=== PATIENT | female | born 1990 | race African-American/Black ===

== ENCOUNTER 2017-07-27 21:48 | Inpatient (IN) | payer MEDICAID ==
[~2017-07-27] VITALS: Ht 165.1 cm; Wt 63.5 kg
[2017-07-27] MEDS ORDERED: LORazepam Inj 2mg/ml 1ml IV ONE (22:45)
[2017-07-27 23:08] VITALS: BP 107/69
[2017-07-27 23:15] LABS: EOSINOPHILS % (AUTO) 4.3 % (0.0-3.0); LYMPHOCYTES % (AUTO) 44.2 % (20.0-45.0); MEAN CORPUSCULAR HEMOGLOBIN 31.3 PG (27.0-31.0); MEAN CORPUSCULAR HGB CONC 34.6 G/DL (32.0-36.0); MEAN CORPUSCULAR VOLUME 91 FL (80-99); MEAN PLATELET VOLUME 6.1 FL (6.5-10.1); MONOCYTES % (AUTO) 5.4 % (1.0-10.0); NEUTROPHILS % (AUTO) 44.2 % (45.0-75.0); PLATELET COUNT 287 K/UL (150-450); RED BLOOD COUNT 4.69 M/UL (4.20-5.40); RED CELL DISTRIBUTION WIDTH 10.7 % (11.6-14.8); WHITE BLOOD COUNT 4.8 K/UL (4.8-10.8)
[2017-07-27 23:20] LABS: APPEARANCE,URINE CLEAR; KETONES,URINE NEGATIVE (NEGATIVE); NITRITE,URINE NEGATIVE (NEGATIVE); PH,URINE 5 (4.5-8.0); PROTEIN,URINE 1+ (NEGATIVE); UROBILINOGEN,URINE 1 MG/DL (0.0-1.0)
[2017-07-27 23:29] LABS: TROPONIN I < 0.30 ng/mL (<=0.30)
[2017-07-27 23:30] LABS: ACETAMINOPHEN < 10 ug/mL (10-30); ALANINE AMINOTRANSFERASE 11 U/L (3-33); ALBUMIN/GLOBULIN RATIO 1.3 (1.0-2.7); ALCOHOL < 10 mg/dL; ANION GAP 14 (5-15); ASPARTATE AMINO TRANSFERASE 19 U/L (5-40); CALCIUM 9.3 mg/dL (8.6-10.2); CARBON DIOXIDE 22 mEQ/L (20-30); CHLORIDE 106 mEQ/L (98-107); CREATININE 0.8 mg/dL (0.5-0.9); GLOMERULAR FILTRATION RATE > 60 mL/min (>60); HEMOLYSIS 21; POTASSIUM 3.7 mEQ/L (3.4-4.9); SODIUM 142 mEQ/L (135-145); TOTAL PROTEIN 7.9 g/dL (6.6-8.7)
[2017-07-27 23:34] LABS: LEUKOCYTE ESTERASE ,URINE 2+ (NEGATIVE)
[2017-07-27 23:35] LABS: BACTERIA,URINE FEW /HPF; SQUAMOUS EPITHELIAL CELL,UR MANY /LPF (NONE/OCC); WBC,URINE 15-20 /HPF (0 - 2)
[2017-07-27 23:41] LABS: CKMB < 1.5 ng/mL (< 3.8)
[2017-07-28] VITALS (7 sets, daily range): BP systolic 93–117; BP diastolic 52–78
[2017-07-28] MEDS ORDERED: levETIRAcetam 500 MG in D5W 110 ML IV ONE (00:30)
[2017-07-28] MEDS ORDERED: levETIRAcetam 500mg vial IV ONE (00:42)
[2017-07-28] MEDS ORDERED: Miralax 17gm pkt ORAL PRN (01:00)
[2017-07-28] MEDS ORDERED: Mylanta II UD 30ml ORAL PRN ×2 (01:00→15:30)
[2017-07-28] MEDS ORDERED: Zolpidem 5mg tab ORAL PRN ×2 (01:00→20:45)
[2017-07-28] MEDS ORDERED: NKM (01:00)
[2017-07-28] MEDS ORDERED: LORazepam Inj 2mg/ml 1ml IV PRN ×2 (01:00→15:30)
[2017-07-28] MEDS: Morphine Sulfate 2mg/ml Inj IVP PRN ×3 (02:25→13:30)
--- NOTE | 2017-07-28 02:41 | Emergency Room Report ---
History of Present Illness General Chief Complaint: General Complaint Source: Patient Present Illness HPI 19-year-old female presents to ED for evaluation. Patient presents with shaking of her right arm. Started 3 days ago. Patient states approximately one week ago she had a seizure but did not come to the hospital. Patient had a seizure one week prior to that as well. Patient did not seek medical attention for either seizure. States that her last 3 days she's been having shaking of her right arm. Denies any prior history of seizure. Denies any head injury. Denies any headache, blurry vision. Denies drug use. No other aggravating relieving factors. Denies any other associated symptoms Allergies: Coded Allergies: No Known Allergies (Unverified , 07/27/17) Patient History Past Medical History: asthma Past Surgical History: none Pertinent Family History: none Social History: Denies: smoking, alcohol use, drug use Last Menstrual Period: May 2017 Now: No Immunizations: UTD Reviewed Nursing Documentation: PMH: Agreed, PSxH: Agreed Nursing Documentation-PMH Hx Asthma: Yes Hx Gastrointestinal Problems: Yes - ulcer Review of Systems All Other Systems: negative except mentioned in HPI Physical Exam Vital Signs Date Time Temp Pulse Resp B/P (MAP) Pulse Ox O2 Delivery O2 Flow Rate FiO2 07/27/17 22:27 98.1 115 16 159/77 96 Room Air Sp02 EP Interpretation: reviewed, normal General Appearance: no apparent distress, alert, GCS 15, non-toxic Head: normocephalic, atraumatic Eyes: bilateral eye normal inspection, bilateral eye PERRL ENT: hearing grossly normal, normal pharynx, no angioedema, normal voice Neck: full range of motion, supple/symm/no masses Respiratory: chest non-tender, lungs clear, normal breath sounds, speaking full sentences Cardiovascular #1: regular rate, rhythm, no edema Cardiovascular #2: 2+ carotid (R), 2+ carotid (L), 2+ radial (R), 2+ radial (L) , 2+ dorsalis pedis (R), 2+ dorsalis pedis (L) Gastrointestinal: normal bowel sounds, non tender, soft, non-distended, no guarding, no rebound Rectal: deferred Genitourinary: normal inspection, no CVA tenderness Musculoskeletal: back normal, gait/station normal, normal range of motion, non- tender Neurologic: alert, oriented x3, responsive, motor strength/tone normal, sensory intact, speech normal, other - shaking of R arm Psychiatric: judgement/insight normal, memory normal, mood/affect normal, no suicidal/homicidal ideation Reflexes: 3+ bicep (R), 3+ bicep (L), 3+ tricep (R), 3+ tricep (L), 3+ knee (R) , 3+ knee (L) Skin: normal color, no rash, warm/dry, well hydrated Lymphatic: no adenopathy Medical Decision Making Diagnostic Impression: Primary Impression: New onset seizure Additional Impression: Partial seizure, motor ER Course Hospital Course 27-year-old F presents to ED with shaking of R arm. s/p seizure 1 week ago Differential diagnosis includes- breakthrough seizure, alcohol abuse, CVA/TIA Clinical course Patient placed on stretcher. Initial history and physical I ordered labs, IV fluids, CT brain, ativan Labs-electrolytes okay, no leukocytosis noted, hemoglobin/hematocrit stable. Utox negative EKG - NSR, no acute changes interpreted by me CT Brain possible old chronic infarct Partial complex seizure-controlled with Ativan in ED. Given loading dose of Keppra Case discussed with Dr. Giordano and he agreed to accept the patient to his service for further care and support. i. I feel this is a highly complex case requiring extensive working including EKG/Rhythm strip, Xray/CT/US, Blood/urine lab work, repeat exams while in ED, and administration of strong opiates/narcotics for pain control, admission to hospital or close patient follow up. Diagnosis - new onset seizure, partial seizure motor admitted to telemetry in serious condition Labs Test 07/27/17 22:54 White Blood Count 4.8 K/UL (4.8-10.8) Red Blood Count 4.69 M/UL (4.20-5.40) Hemoglobin 14.7 G/DL (12.0-16.0) Hematocrit 42.5 % (37.0-47.0) Mean Corpuscular Volume 91 FL (80-99) Mean Corpuscular Hemoglobin 31.3 PG (27.0-31.0) Mean Corpuscular Hemoglobin Concent 34.6 G/DL (32.0-36.0) Red Cell Distribution Width 10.7 % (11.6-14.8) Platelet Count 287 K/UL (150-450) Mean Platelet Volume 6.1 FL (6.5-10.1) Neutrophils (%) (Auto) 44.2 % (45.0-75.0) Lymphocytes (%) (Auto) 44.2 % (20.0-45.0) Monocytes (%) (Auto) 5.4 % (1.0-10.0) Eosinophils (%) (Auto) 4.3 % (0.0-3.0) Basophils (%) (Auto) 2.0 % (0.0-2.0) Urine Color Yellow Urine Appearance Clear Urine pH 5 (4.5-8.0) Urine Specific [place] 1.025 (1.005-1.035) Urine Protein 1+ (NEGATIVE) Urine Glucose (UA) Negative (NEGATIVE) Urine Ketones Negative (NEGATIVE) Urine Occult Blood 1+ (NEGATIVE) Urine Nitrite Negative (NEGATIVE) Urine Bilirubin Negative (NEGATIVE) Urine Urobilinogen 1 MG/DL (0.0-1.0) Urine Leukocyte Esterase 2+ (NEGATIVE) Urine RBC 2-4 /HPF (0 - 2) Urine WBC 15-20 /HPF (0 - 2) Urine Squamous Epithelial Cells Many /LPF (NONE/OCC) Urine Bacteria Few /HPF (NONE) Urine HCG, Qualitative Negative Sodium Level 142 mEQ/L (135-145) Potassium Level 3.7 mEQ/L (3.4-4.9) Chloride Level 106 mEQ/L (98-107) Carbon Dioxide Level 22 mEQ/L (20-30) Anion Gap 14 (5-15) Blood Urea Nitrogen 5 mg/dL (7-23) Creatinine 0.8 mg/dL (0.5-0.9) Estimat Glomerular Filtration Rate > 60 mL/min (>60) Glucose Level 86 mg/dL (74-106) Calcium Level 9.3 mg/dL (8.6-10.2) Total Bilirubin 0.8 mg/dL (0.0-1.2) Aspartate Amino Transf (AST/SGOT) 19 U/L (5-40) Alanine Aminotransferase (ALT/SGPT) 11 U/L (3-33) Alkaline Phosphatase 51 U/L (35-104) Total Creatine Kinase 153 U/L (26-140) Creatine Kinase MB < 1.5 ng/mL (< 3.8) Creatine Kinase MB Relative Index 0.9 Troponin I < 0.30 ng/mL (<=0.30) Total Protein 7.9 g/dL (6.6-8.7) Albumin 4.6 g/dL (3.5-5.2) Globulin 3.3 g/dL Albumin/Globulin Ratio 1.3 (1.0-2.7) Salicylates Level < 1 mg/dL (10-30) Urine Opiates Screen Negative (NEGATIVE) Acetaminophen Level < 10 ug/mL (10-30) Urine Barbiturates Screen Negative (NEGATIVE) Phencyclidine (PCP) Screen Negative (NEGATIVE) Urine Amphetamines Screen Negative (NEGATIVE) Urine Benzodiazepines Screen Negative (NEGATIVE) Urine Cocaine Screen Negative (NEGATIVE) Urine Marijuana (THC) Screen Negative (NEGATIVE) Serum Alcohol < 10 mg/dL EKG Diagnostic Results Rate: normal Rhythm: NSR ST Segments: no acute changes ASA given to the pt in ED: No Rhythm Strip Diag. 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 Jul 28, 2017 02:41
[2017-07-28] MEDS ORDERED: Heparin 5000 units/ml inj SUBQ SCH (09:00)
--- NOTE | 2017-07-28 09:38 | Diagnostic Imaging Report ---
Indication: Seizure. Headache Technique: Contiguous 5 mm thick transaxial imaging of the head obtained in a Siemens Sensation [address] scanner. Soft tissue and bone windows generated. Total Dose length Product (DLP): [address] Dose Index Volume (CTDIvol): 70.38, 0.15 mGy Comparison: none Findings: The size and configuration of the cortical sulci, basal cisterns, and ventricles are within normal limits for age. There is no mass effect, midline shift, or edema identified. There is no evidence of acute hemorrhage or abnormal extra-axial fluid collections. There is mild encephalomalacia in the lateral part of the left temporal lobe which shows atrophic cortices and prominent sulci. This may possibly be postischemic or due to old trauma. Please correlate clinically. The bones and soft tissues are unremarkable. Impression: No mass effect, edema or acute bleed. Focal encephalomalacia involving lateral left temporal lobe. Old trauma versus old ischemia. Please correlate clinically. The CT scanner at [facility] is accredited by the [employer] and the scans are performed using dose optimization techniques as appropriate to a performed exam including Automatic Exposure control.
--- NOTE | 2017-07-28 13:29 | History and Physical ---
History of Present Illness General Date patient seen: Jul 28, 2017 Reason for Hospitalization: General Complaint Present Illness HPI 19-year-old female presents to ED for evaluation of shaking of her right arm. Started 3 days ago. Patient states approximately one week ago she had a seizure but did not come to the hospital. Patient had a seizure one week prior to that as well. . Denies any prior history of seizure. Denies any head injury. Denies any headache, blurry vision. she is admitted for evaluation of new onset seizures. Allergies: Coded Allergies: No Known Allergies (Unverified , 07/27/17) Medication History Scheduled No Known Medications* (NKM - No Known Medications*), 0 ., (Reported) Patient History Healthcare decision maker Resuscitation status Full Code Advanced Directive on File No Past Medical/Surgical History Past Medical/Surgical History: (1) No pertinent past medical history Review of Systems All Other Systems: negative except mentioned in HPI Physical Exam General Appearance: WD/WN Lines, tubes and drains: peripheral HEENT: normocephalic, atraumatic Neck: non-tender, normal alignment Respiratory/Chest: chest wall non-tender, lungs clear Breasts: no masses Cardiovascular/Chest: normal peripheral pulses, normal rate Abdomen: normal bowel sounds, non tender Genitourinary/Rectal: normal genital exam, normal rectal exam Skin Exam: normal pigmentation 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 Last 24 Hour Vital Signs Date Time Temp Pulse Resp B/P (MAP) Pulse Ox O2 Delivery O2 Flow Rate FiO2 07/28/17 11:26 97.9 80 20 112/72 98 Room Air 07/28/17 08:08 97.7 73 20 93/65 95 Room Air 07/28/17 04:07 73 07/28/17 04:00 98.1 67 18 104/68 98 Room Air 07/28/17 02:00 98.2 69 18 107/66 97 Room Air 07/28/17 01:13 98.1 78 14 117/78 100 Room Air 07/28/17 01:04 82 14 101/63 100 Room Air 07/27/17 23:08 98.1 78 16 107/69 96 Room Air 07/27/17 22:27 98.1 115 16 159/77 96 Room Air Intake and Output 07/28/17 07/29/17 19:00 07:00 Intake Total 480 ml Balance 480 ml Intake Oral 480 ml # Voids 2 Laboratory Tests Test 07/27/17 22:54 White Blood Count 4.8 K/UL (4.8-10.8) Red Blood Count 4.69 M/UL (4.20-5.40) Hemoglobin 14.7 G/DL (12.0-16.0) Hematocrit 42.5 % (37.0-47.0) Mean Corpuscular Volume 91 FL (80-99) Mean Corpuscular Hemoglobin 31.3 PG (27.0-31.0) H Mean Corpuscular Hemoglobin Concent 34.6 G/DL (32.0-36.0) Red Cell Distribution Width 10.7 % (11.6-14.8) L Platelet Count 287 K/UL (150-450) Mean Platelet Volume 6.1 FL (6.5-10.1) L Neutrophils (%) (Auto) 44.2 % (45.0-75.0) L Lymphocytes (%) (Auto) 44.2 % (20.0-45.0) Monocytes (%) (Auto) 5.4 % (1.0-10.0) Eosinophils (%) (Auto) 4.3 % (0.0-3.0) H Basophils (%) (Auto) 2.0 % (0.0-2.0) Urine Color Yellow Urine Appearance Clear Urine pH 5 (4.5-8.0) Urine Specific [place] 1.025 (1.005-1.035) Urine Protein 1+ (NEGATIVE) H Urine Glucose (UA) Negative (NEGATIVE) Urine Ketones Negative (NEGATIVE) Urine Occult Blood 1+ (NEGATIVE) H Urine Nitrite Negative (NEGATIVE) Urine Bilirubin Negative (NEGATIVE) Urine Urobilinogen 1 MG/DL (0.0-1.0) H Urine Leukocyte Esterase 2+ (NEGATIVE) H Urine RBC 2-4 /HPF (0 - 2) H Urine WBC 15-20 /HPF (0 - 2) H Urine Squamous Epithelial Cells Many /LPF (NONE/OCC) H Urine Bacteria Few /HPF (NONE) Urine HCG, Qualitative Negative Sodium Level 142 mEQ/L (135-145) Potassium Level 3.7 mEQ/L (3.4-4.9) Chloride Level 106 mEQ/L (98-107) Carbon Dioxide Level 22 mEQ/L (20-30) Anion Gap 14 (5-15) Blood Urea Nitrogen 5 mg/dL (7-23) L Creatinine 0.8 mg/dL (0.5-0.9) Estimat Glomerular Filtration Rate > 60 mL/min (>60) Glucose Level 86 mg/dL (74-106) Calcium Level 9.3 mg/dL (8.6-10.2) Total Bilirubin 0.8 mg/dL (0.0-1.2) Aspartate Amino Transf (AST/SGOT) 19 U/L (5-40) Alanine Aminotransferase (ALT/SGPT) 11 U/L (3-33) Alkaline Phosphatase 51 U/L (35-104) Total Creatine Kinase 153 U/L (26-140) H Creatine Kinase MB < 1.5 ng/mL (< 3.8) Creatine Kinase MB Relative Index 0.9 Troponin I < 0.30 ng/mL (<=0.30) Total Protein 7.9 g/dL (6.6-8.7) Albumin 4.6 g/dL (3.5-5.2) Globulin 3.3 g/dL Albumin/Globulin Ratio 1.3 (1.0-2.7) Salicylates Level < 1 mg/dL (10-30) L Urine Opiates Screen Negative (NEGATIVE) Acetaminophen Level < 10 ug/mL (10-30) L Urine Barbiturates Screen Negative (NEGATIVE) Phencyclidine (PCP) Screen Negative (NEGATIVE) Urine Amphetamines Screen Negative (NEGATIVE) Urine Benzodiazepines Screen Negative (NEGATIVE) Urine Cocaine Screen Negative (NEGATIVE) Urine Marijuana (THC) Screen Negative (NEGATIVE) Serum Alcohol < 10 mg/dL Height (Feet): 5 Height (Inches): 5.00 Weight (Pounds): 140 Medications Current Medications Medications (Trade) Dose Ordered Sig/Kain Route PRN Reason Start Time Stop Time Status Last Admin Dose Admin Acetaminophen (Tylenol) 650 mg Q4H PRN ORAL fever 07/28/17 01:00 08/27/17 00:59 Al Hydroxide/Mg Hydroxide (Mylanta II) 30 ml Q6H PRN ORAL dyspepsia 07/28/17 01:00 08/27/17 00:59 Dextrose (Dextrose 50%) STAT PRN IV Hypoglycemia 07/28/17 01:00 08/27/17 00:59 Heparin Sodium (Porcine) (Heparin 5000 units/ml) 5,000 units EVERY 12 HOURS SUBQ 07/28/17 09:00 08/27/17 08:59 07/28/17 08:38 Lorazepam (Ativan 2mg/ml 1ml) 2 mg Q1H PRN IV seizures 07/28/17 01:00 08/04/17 00:59 Morphine Sulfate (Morphine Sulfate) 1 mg Q4H PRN IVP For Pain 07/28/17 01:00 08/04/17 00:59 07/28/17 08:40 Ondansetron HCl (Zofran) 4 mg Q6H PRN IVP Nausea & Vomiting 07/28/17 01:00 08/27/17 00:59 Polyethylene Glycol (Miralax) 17 gm HSPRN PRN ORAL Constipation 07/28/17 01:00 08/27/17 00:59 Zolpidem Tartrate (Ambien) 5 mg HSPRN PRN ORAL Insomnia 07/28/17 01:00 08/04/17 00:59 Assessment/Plan Problem List: (1) New onset seizure ICD Codes: R56.9 - Unspecified convulsions SNOMED: 89765561 (2) No pertinent past medical history SNOMED: 165222398 (3) Malingering ICD Codes: Z76.5 - Malingerer [conscious simulation] SNOMED: 45440869 Assessment/Plan neuro evaluation seizure precaution MAMIE HARO Jul 28, 2017 13:29
[2017-07-28] MEDS ORDERED: LORazepam Inj 2mg/ml 1ml IV ONE (16:20)
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
[2017-07-28] MEDS: levETIRAcetam 1,000mg/NS100ml 100 ML IVPB SCH ×2 (16:57→20:15)
[2017-07-28] MEDS ORDERED: Morphine Sulfate 2mg/ml Inj IVP PRN (17:30)
[2017-07-28] MEDS: traMADol 50mg tab ORAL PRN (18:15)
[2017-07-28] MEDS: Heparin 5000 units/ml inj SUBQ SCH (20:21)
[2017-07-28] MEDS ORDERED: levETIRAcetam 1,000mg/NS100ml 100 ML IVPB SCH (21:00)
[2017-07-29] VITALS (7 sets, daily range): BP systolic 93–120; BP diastolic 56–82
[2017-07-29] MEDS: traMADol 50mg tab ORAL PRN ×2 (01:16→22:08)
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
[2017-07-29 07:27] LABS: ALANINE AMINOTRANSFERASE 8 U/L (3-33); ALBUMIN/GLOBULIN RATIO 1.5 (1.0-2.7); ANION GAP 12 (5-15); ASPARTATE AMINO TRANSFERASE 14 U/L (5-40); CALCIUM 8.8 mg/dL (8.6-10.2); CARBON DIOXIDE 24 mEQ/L (20-30); CHLORIDE 102 mEQ/L (98-107); CREATININE 0.8 mg/dL (0.5-0.9); GLOMERULAR FILTRATION RATE > 60 mL/min (>60); HEMOLYSIS 4; POTASSIUM 3.7 mEQ/L (3.4-4.9); SODIUM 138 mEQ/L (135-145); TOTAL PROTEIN 6.4 g/dL (6.6-8.7)
[2017-07-29 07:33] LABS: BASOPHILS % (AUTO) 1.1 % (0.0-2.0); EOSINOPHILS % (AUTO) 2.5 % (0.0-3.0); LYMPHOCYTES % (AUTO) 47.4 % (20.0-45.0); MEAN CORPUSCULAR VOLUME 89 FL (80-99); MEAN PLATELET VOLUME 6.2 FL (6.5-10.1); NEUTROPHILS % (AUTO) 42.1 % (45.0-75.0); PLATELET COUNT 234 K/UL (150-450); RED BLOOD COUNT 3.98 M/UL (4.20-5.40); RED CELL DISTRIBUTION WIDTH 10.3 % (11.6-14.8); WHITE BLOOD COUNT 3.7 K/UL (4.8-10.8)
[2017-07-29] MEDS: levETIRAcetam 1,000mg/NS100ml 100 ML IVPB SCH ×3 (09:24→23:58)
[2017-07-29] MEDS: Heparin 5000 units/ml inj SUBQ SCH ×2 (09:25→21:28)
[2017-07-29] MEDS ORDERED: HYDROmorphone 1mg/ml Carpuject IVP PRN (10:15)
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
[2017-07-29] MEDS ORDERED: levETIRAcetam 500mg/NS100ml 100 ML IVPB ONE (11:15)
[2017-07-29] MEDS ORDERED: Phenytoin 1,000 MG in NS 275 ML IVPB ONE (11:45)
--- NOTE | 2017-07-29 14:56 | Diagnostic Imaging Report ---
Indication: Shortness of breath Technique: One view of the chest Comparison: 07/21/2010 Findings: Lungs and pleural spaces are clear. Heart size is normal. No significant change Impression: No acute process
--- NOTE | 2017-07-29 14:56 | Diagnostic Imaging Report ---
Indication: Abdominal pain Technique: Supine view of the abdomen Comparison: 02/26/2010 Findings: Bowel gas pattern is unremarkable. No unusual masses or calcifications. The bones are unremarkable. Impression: Negative
[2017-07-29] MEDS ORDERED: Zolpidem 5mg tab ORAL PRN (21:00)
[2017-07-29] MEDS ORDERED: Miralax 17gm pkt ORAL PRN (21:00)
[2017-07-29] MEDS: LORazepam Inj 2mg/ml 1ml IV PRN (21:51)
--- NOTE | 2017-07-29 22:42 | Pulmonology Progress Note ---
Assessment/Plan Problems: (1) New onset seizure (2) No pertinent past medical history Assessment/Plan f/u Neuro recommendations EEG, Kepra valium prn Subjective ROS Limited/Unobtainable: No Interval Events: transferred to [facility], as requested by Neurologist Allergies: Coded Allergies: No Known Allergies (Unverified , 07/27/17) Objective Last 24 Hour Vital Signs Date Time Temp Pulse Resp B/P (MAP) Pulse Ox O2 Delivery O2 Flow Rate FiO2 07/29/17 20:00 98.0 62 18 98/61 98 Room Air 07/29/17 19:07 70 07/29/17 16:00 62 07/29/17 15:42 98.2 59 16 93/57 98 Room Air 07/29/17 13:20 97.9 66 16 103/56 98 Room Air 07/29/17 12:00 97.7 68 18 106/68 98 Room Air 07/29/17 08:00 97.9 93 18 120/82 99 Room Air 07/29/17 04:00 99.7 64 20 98/57 99 Room Air 07/29/17 02:15 98.2 07/29/17 00:00 98.2 73 18 95/56 99 Room Air Intake and Output 07/29/17 07/30/17 19:00 07:00 Intake Total 990 ml Balance 990 ml IV Total 990 ml # Voids 3 HEENT: normocephalic, atraumatic Respiratory/Chest: lungs clear, normal breath sounds Cardiovascular: regular rhythm, regularly irregular Abdomen: normal bowel sounds, soft, non tender Extremities: no cyanosis Skin: no rash Microbiology Date/Time Source Procedure Growth Status 07/27/17 22:54 Urine,Clean Catch Urine Culture - Preliminary Gram Negative Bacillus 1 Resulted Laboratory Tests 07/29/17 05:10: White Blood Count 3.7L, Red Blood Count 3.98L, Hemoglobin 12.3, Hematocrit 35.3L , Mean Corpuscular Volume 89, Mean Corpuscular Hemoglobin 31.0, Mean Corpuscular Hemoglobin Concent 35.0, Red Cell Distribution Width 10.3L, Platelet Count 234, Mean Platelet Volume 6.2L, Neutrophils (%) (Auto) 42.1L, Lymphocytes (%) (Auto) 47.4H, Monocytes (%) (Auto) 7.0, Eosinophils (%) (Auto) 2.5, Basophils (%) (Auto) 1.1, Erythrocyte Sedimentation Rate 13, Sodium Level 138, Potassium Level 3.7, Chloride Level 102, Carbon Dioxide Level 24, Anion Gap 12, Blood Urea Nitrogen 6L, Creatinine 0.8, Estimat Glomerular Filtration Rate > 60, Glucose Level 91, Calcium Level 8.8, Total Bilirubin 0.7, Aspartate Amino Transf (AST/SGOT) 14, Alanine Aminotransferase (ALT/SGPT) 8, Alkaline Phosphatase 37, C-Reactive Protein, Quantitative < 0.3, Total Protein 6.4L, Albumin 3.9, Globulin 2.5, Albumin/Globulin Ratio 1.5, Anti-Nuclear Antibody Screen [Pending], HIV (1&2) Antibody Rapid Negative Current Medications Medications (Trade) Dose Ordered Sig/Kain Route PRN Reason Start Time Stop Time Status Last Admin Dose Admin Acetaminophen (Tylenol) 650 mg Q4H PRN ORAL fever>100.5 07/28/17 15:30 08/27/17 15:29 07/29/17 15:52 Al Hydroxide/Mg Hydroxide (Mylanta II) 30 ml Q6H PRN ORAL dyspepsia 07/28/17 15:30 08/27/17 15:29 Dextrose (Dextrose 50%) STAT PRN IV Hypoglycemia 07/28/17 15:30 08/27/17 15:29 Heparin Sodium (Porcine) (Heparin 5000 units/ml) 5,000 units EVERY 12 HOURS SUBQ 07/28/17 21:00 08/27/17 08:59 07/29/17 21:28 Hydromorphone HCl (Dilaudid) 0.5 mg Q4H PRN IVP For Pain 07/29/17 10:30 08/05/17 10:29 Levetiracetam 100 ml @ 400 mls/hr Q8H IVPB 07/29/17 16:00 08/28/17 15:59 07/29/17 16:31 Lorazepam (Ativan 2mg/ml 1ml) 2 mg Q1H PRN IV grand mal episode 07/29/17 11:30 08/05/17 11:29 07/29/17 21:51 Ondansetron HCl (Zofran) 4 mg Q6H PRN IVP Nausea & Vomiting 07/28/17 15:30 08/27/17 15:29 07/29/17 12:49 Polyethylene Glycol (Miralax) 17 gm HSPRN PRN ORAL Constipation 07/29/17 21:00 08/27/17 20:59 Tramadol HCl (Ultram) 50 mg Q6H PRN ORAL for headache 07/28/17 16:45 08/04/17 16:44 07/29/17 22:08 Zolpidem Tartrate (Ambien) 5 mg HSPRN PRN ORAL Insomnia 07/28/17 20:45 08/04/17 20:44 07/28/17 20:37 MAMIE HARO Jul 29, 2017 22:42
[2017-07-30 00:31] VITALS: BP 103/61
[2017-07-30] MEDS: HYDROmorphone 1mg/ml Carpuject IVP PRN ×5 (00:40→23:40)
[2017-07-30 04:00] VITALS: BP 106/71
[2017-07-30 07:57] VITALS: BP 123/82
[2017-07-30] MEDS: levETIRAcetam 1,000mg/NS100ml 100 ML IVPB SCH ×3 (09:08→23:29)
[2017-07-30] MEDS: Heparin 5000 units/ml inj SUBQ SCH ×2 (09:10→20:25)
[2017-07-30] MEDS ORDERED: NS 275ml ONE (10:31)
[2017-07-30] MEDS ORDERED: Tubing IV Secondary IV ONE (10:31)
--- NOTE | 2017-07-30 11:16 | Pulmonology Progress Note ---
Assessment/Plan Problems: (1) New onset seizure (2) No pertinent past medical history Assessment/Plan neuro f/u eeg pending Subjective ROS Limited/Unobtainable: No Constitutional: Reports: no symptoms Respiratory: Reports: no symptoms Cardiovascular: Reports: no symptoms Gastrointestinal/Abdominal: Reports: no symptoms Allergies: Coded Allergies: No Known Allergies (Unverified , 07/27/17) Objective Last 24 Hour Vital Signs Date Time Temp Pulse Resp B/P (MAP) Pulse Ox O2 Delivery O2 Flow Rate FiO2 07/30/17 07:57 97.2 72 18 123/82 98 Room Air 07/30/17 07:49 71 07/30/17 04:00 56 07/30/17 04:00 97.8 62 20 106/71 98 Room Air 07/30/17 00:31 98.1 71 20 103/61 98 07/30/17 00:00 82 07/29/17 20:00 98.0 62 18 98/61 98 Room Air 07/29/17 19:07 70 07/29/17 16:00 62 07/29/17 15:42 98.2 59 16 93/57 98 Room Air 07/29/17 13:20 97.9 66 16 103/56 98 Room Air 07/29/17 12:00 97.7 68 18 106/68 98 Room Air Objective less activity of seizures General Appearance: no acute distress HEENT: atraumatic Respiratory/Chest: chest wall non-tender, lungs clear Breasts: no masses Cardiovascular: normal peripheral pulses, normal rate Abdomen: normal bowel sounds, soft, non tender Genitourinary: normal external genitalia Extremities: no cyanosis 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, no motor/sensory deficits Lymphatic: no neck adenopathy Musculoskeletal: normal muscle bulk Microbiology Date/Time Source Procedure Growth Status 07/27/17 22:54 Urine,Clean Catch Urine Culture - Preliminary Escherichia Coli Gram Negative Bacillus 2 Resulted Current Medications Medications (Trade) Dose Ordered Sig/Kain Route PRN Reason Start Time Stop Time Status Last Admin Dose Admin Acetaminophen (Tylenol) 650 mg Q4H PRN ORAL fever>100.5 07/28/17 15:30 08/27/17 15:29 07/29/17 15:52 Al Hydroxide/Mg Hydroxide (Mylanta II) 30 ml Q6H PRN ORAL dyspepsia 07/28/17 15:30 10/26/17 15:29 Dextrose (Dextrose 50%) STAT PRN IV Hypoglycemia 07/28/17 15:30 08/27/17 15:29 Heparin Sodium (Porcine) (Heparin 5000 units/ml) 5,000 units EVERY 12 HOURS SUBQ 07/28/17 21:00 08/27/17 08:59 07/30/17 09:10 Hydromorphone HCl (Dilaudid) 0.5 mg Q4H PRN IVP For Pain 07/29/17 10:30 08/05/17 10:29 07/30/17 06:53 Levetiracetam 100 ml @ 400 mls/hr Q8H IVPB 07/29/17 16:00 08/28/17 15:59 07/30/17 09:08 Lorazepam (Ativan 2mg/ml 1ml) 2 mg Q1H PRN IV grand mal episode 07/29/17 11:30 08/05/17 11:29 07/29/17 21:51 Ondansetron HCl (Zofran) 4 mg Q6H PRN IVP Nausea & Vomiting 07/28/17 15:30 08/27/17 15:29 07/29/17 12:49 Polyethylene Glycol (Miralax) 17 gm HSPRN PRN ORAL Constipation 07/29/17 21:00 08/27/17 20:59 Tramadol HCl (Ultram) 50 mg Q6H PRN ORAL for headache 07/28/17 16:45 08/04/17 16:44 07/29/17 22:08 Zolpidem Tartrate (Ambien) 5 mg HSPRN PRN ORAL Insomnia 07/28/17 20:45 08/04/17 20:44 07/28/17 20:37 MAMIE HARO Jul 30, 2017 11:16
[2017-07-30 12:00] VITALS: BP 104/60
[2017-07-30 16:00] VITALS: BP 93/38
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
[2017-07-30] MEDS ORDERED: PHENYTOIN IVPB ONE (17:30)
[2017-07-30] MEDS ORDERED: NS IVPB ONE (17:30)
--- NOTE | 2017-07-30 18:30 | Electroencephalogram ---
DATE OF PROCEDURE: 07/29/2017 PROCEDURE PERFORMED: Electroencephalography. READING PHYSICIAN: Arivnd Tamayo M.D. REFERRING PHYSICIAN: Salma Giordano M.D. History: This 27-year-old female was admitted with continuous involuntary right arm jerking, now treated with Dilantin, Keppra and Valium. Given also Dilaudid for pain management. Technique: During the recording, the patient was awake or drowsy or asleep. There was a fair cooperation and normal mentality. No involuntary movements noted. EEG was done using 18 electrodes placed [id number], [id number] montages according to 10/20 International System. Most wakeful portions of recording background activity consists of well regulated 8 to 9 cycles per second, medium voltage alpha activities with good response to physiological stimulation. The patient was in and out of drowsiness with attenuation of the background, but no asymmetry from side to side. No spike or wave activities noted. Photic stimulation was obtained from 3 to 32 hertz, resulted in no significant changes. Activation with eye opening and eye closure revealed normal reactivity. Impression: Normal awake stage 1 sleep electroencephalogram with photic stimulation. Comment: Absence of paroxysmal event on a single recording does not rule out seizure disorder. Arvind Tamayo M.D. DR: SIMONA JOB#: [id number] CC:
[2017-07-30 20:00] VITALS: BP 131/64
[2017-07-31] VITALS: BP 105/68
[2017-07-31 04:00] VITALS: BP 129/70
[2017-07-31] MEDS: HYDROmorphone 1mg/ml Carpuject IVP PRN (04:59)
[2017-07-31 08:00] VITALS: BP 92/44
[2017-07-31] MEDS: levETIRAcetam 1,000mg/NS100ml 100 ML IVPB SCH ×2 (08:29→16:56)
[2017-07-31] MEDS: Heparin 5000 units/ml inj SUBQ SCH ×2 (09:00→21:08)
[2017-07-31 09:27] LABS: PROTHROMBIN TIME 10.6 SEC (9.30-11.50)
[2017-07-31] MEDS ORDERED: Hydromorphone 0.5mg/0.5ml inj IVP PRN (10:30)
[2017-07-31] MEDS ORDERED: DIAZEPAM5 MG ORAL (11:24)
[2017-07-31] MEDS ORDERED: KEPPRA1000 MG ORAL (11:24)
--- NOTE | 2017-07-31 11:27 | Pulmonology Progress Note ---
Assessment/Plan Problems: (1) New onset seizure (2) No pertinent past medical history Assessment/Plan f/u Neuro recommendations EEG, Kepra valium Subjective ROS Limited/Unobtainable: No Interval Events: seizures are better Constitutional: Reports: no symptoms HEENT: Repors: no symptoms Respiratory: Reports: no symptoms Allergies: Coded Allergies: No Known Allergies (Unverified , 07/27/17) Objective Last 24 Hour Vital Signs Date Time Temp Pulse Resp B/P (MAP) Pulse Ox O2 Delivery O2 Flow Rate FiO2 07/31/17 08:00 97.7 67 20 92/44 99 Room Air 07/31/17 04:00 98.0 76 20 129/70 98 Room Air 07/31/17 04:00 63 07/31/17 00:00 97.3 75 20 105/68 97 Room Air 07/31/17 00:00 65 07/30/17 20:00 98.1 75 20 131/64 97 Room Air 07/30/17 20:00 61 07/30/17 16:00 59 07/30/17 16:00 99.0 59 16 93/38 95 Room Air 07/30/17 12:00 97.0 57 18 104/60 99 Room Air 07/30/17 11:52 73 Intake and Output 07/31/17 08/01/17 19:00 07:00 Intake Total 100 ml Balance 100 ml IV Total 100 ml Objective better HEENT: normocephalic, atraumatic Respiratory/Chest: chest wall non-tender, lungs clear Breasts: no masses Cardiovascular: normal peripheral pulses Abdomen: normal bowel sounds, soft, non tender Genitourinary: normal external genitalia Extremities: no cyanosis Skin: no lesions 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 Lymphatic: no neck adenopathy Musculoskeletal: normal muscle bulk Laboratory Tests 07/31/17 03:30: Phenytoin (Dilantin) Level 10.8 07/31/17 08:45: Prothrombin Time 10.6, Prothromb Time International Ratio 1.0 Current Medications Medications (Trade) Dose Ordered Sig/Kain Route PRN Reason Start Time Stop Time Status Last Admin Dose Admin Acetaminophen (Tylenol) 650 mg Q4H PRN ORAL fever>100.5 07/28/17 15:30 08/27/17 15:29 07/29/17 15:52 Al Hydroxide/Mg Hydroxide (Mylanta II) 30 ml Q6H PRN ORAL dyspepsia 07/28/17 15:30 08/27/17 15:29 Dextrose (Dextrose 50%) STAT PRN IV Hypoglycemia 07/28/17 15:30 08/27/17 15:29 Diazepam (Valium) 5 mg Q6H ORAL 07/30/17 16:30 08/06/17 16:29 07/31/17 04:24 Heparin Sodium (Porcine) (Heparin 5000 units/ml) 5,000 units EVERY 12 HOURS SUBQ 07/28/17 21:00 08/27/17 08:59 07/30/17 20:25 Hydromorphone HCl (Dilaudid) 0.5 mg Q4H PRN IVP For Pain 07/31/17 10:30 08/05/17 10:29 Levetiracetam 100 ml @ 400 mls/hr Q8H IVPB 07/29/17 16:00 08/28/17 15:59 07/31/17 08:29 Lorazepam (Ativan 2mg/ml 1ml) 2 mg Q1H PRN IV grand mal episode 07/29/17 11:30 08/05/17 11:29 07/29/17 21:51 Ondansetron HCl (Zofran) 4 mg Q6H PRN IVP Nausea & Vomiting 07/28/17 15:30 08/27/17 15:29 07/30/17 14:39 Polyethylene Glycol (Miralax) 17 gm HSPRN PRN ORAL Constipation 07/29/17 21:00 08/27/17 20:59 Tramadol HCl (Ultram) 50 mg Q6H PRN ORAL for headache 07/28/17 16:45 08/04/17 16:44 07/29/17 22:08 Zolpidem Tartrate (Ambien) 5 mg HSPRN PRN ORAL Insomnia 07/28/17 20:45 08/04/17 20:44 07/28/17 20:37 MAMIE HARO Jul 31, 2017 11:27
[2017-07-31 12:00] VITALS: BP 106/66
[2017-07-31] MEDS: LORazepam Inj 2mg/ml 1ml IV PRN (13:45)
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
[2017-07-31] MEDS ORDERED: Phenytoin 100mg cap ORAL SCH (14:00)
[2017-07-31] MEDS ORDERED: clonazePAM 0.5mg tab ORAL SCH (14:00)
--- NOTE | 2017-07-31 14:20 | Pre-Procedure Note/Attestation ---
Pre-Procedure Note/Attestation Complete Prior to Procedure Planned Procedure: not applicable Procedure Narrative: lumbar puncture Indications for Procedure Pre-Operative Diagnosis: seizures Attestation I attest that I discussed the nature of the procedure; its benefits; risks and complications; and alternatives (and the risks and benefits of such alternatives ), prior to the procedure, with the patient (or the patient's legal shipping services sales representative). I attest that, if there was a reasonable possibility of needing a blood transfusion, the patient (or the patient's legal shipping services sales representative) was given the [facility] standardized written summary, pursuant to the Jose Alej[employer] Eleanor Blood Safety Act ([place] Health and Safety Code # 1645, as amended). I attest that I re-evaluated the patient just prior to the surgery and that there has been no change in the patient's H&P, except as documented below: JONATHAN CANTU M.D. Jul 31, 2017 14:20
[2017-07-31 16:00] VITALS: BP 104/68
[2017-07-31 16:08] LABS: GLUCOSE,CSF 63 mg/dL (50-80)
--- NOTE | 2017-07-31 16:56 | Diagnostic Imaging Report ---
Indication: 19-year-old female inpatient with new onset seizures and altered mental status. Acute left lateral temporal infarct Technique: sagittal T1 fast spin echo, axial T1 and T2 FLAIR PROPELLER, axial T2 FS PROPELLER, T2* GRE, axial diffusion weighted images, post contrast axial and coronal T1 FLAIR PROPELLER images.. Coronal well gradient and coronal T2 FLAIR PROPELLER images. ADC and exponential ADC maps generated Comparison: Head CT 07/27/2017. No comparison MRIs Findings: There is slight image degradation due to motion artifact. Patient reportedly unable to hold still. No abnormal areas of restricted diffusion to suggest acute infarction. No acute hemorrhage or edema. No mass effect nor midline shift. No abnormal contrast enhancement. There is a small focus of cortical encephalomalacia in the left lateral temporal lobe, with resulting expansion of adjacent CSF space. This is also described on recent CT. T2 FLAIR images demonstrate minimal underlying gliosis in this area. Normal size ventricles and extra axial CSF spaces. Normal and symmetrical appearing bilateral hippocampi. The vascular flow voids are preserved.. Visualized orbits and sinuses are unremarkable Impression: Small area of cortical encephalomalacia in the left lateral temporal lobe, also described on recent CT scan. No evidence of acute intracranial bleed, mass effect, edema, infarct, contrast enhancing lesion. No evidence of mesial temporal sclerosis.
--- NOTE | 2017-07-31 17:09 | Diagnostic Imaging Report ---
Indication: Altered metal status, seizure Technique: Informed consent obtained prior to commencement of the procedure. Procedural timeout performed. Sterile prepping and draping. Local anesthesia with 1% lidocaine. Under real-time fluoroscopy guidance, a 22-gauge spinal needle was directed into the thecal sac at the L3-4 level. This was confirmed on orthogonal fluoroscopic spot images. Spontaneous return of CSF was observed with patient turned into the left lateral decubitus position. Opening pressure obtained, found to be 14 cm H2O. Total 10 mL of clear CSF divided into 4 vials. Closing pressure obtained, found to be 13 cm H2O. The patient tolerated the procedure well, without immediate complication. Total fluoroscopy time 0.7 minutes. Total dose area product 13 dGycm2 Comparison: None Findings: Opening pressure 14 cm H2O. Closing pressure 13 cm H2O Impression: Successful fluoroscopy-guided lumbar puncture, as described
[2017-07-31] MEDS ORDERED: LORazepam Inj 2mg/ml 1ml IV PRN (18:30)
[2017-07-31 18:37] LABS: APPEARANCE,CSF CLEAR; COLOR,CSF COLORLESS
[2017-07-31 18:41] LABS: WHITE BLOOD CELL,CSF 1 /CU MM (0-5)
[2017-07-31 20:00] VITALS: BP 110/63
[2017-07-31] MEDS ORDERED: Zolpidem 5mg tab ORAL PRN (20:45)
[2017-07-31] MEDS ORDERED: Miralax 17gm pkt ORAL PRN (21:00)
[2017-07-31] MEDS: Phenytoin 100mg cap ORAL SCH (21:08)
[2017-07-31] MEDS: clonazePAM 0.5mg tab ORAL SCH (21:09)
[2017-07-31] MEDS: Hydromorphone 0.5mg/0.5ml inj IVP PRN (21:10)
[2017-07-31] MEDS ORDERED: Mylanta II UD 30ml ORAL PRN (21:30)
[2017-08-01] VITALS: BP 102/51
[2017-08-01] MEDS ORDERED: levETIRAcetam 1,000mg/NS100ml 100 ML IVPB SCH
[2017-08-01] MEDS: clonazePAM 0.5mg tab ORAL SCH ×4 (02:24→20:09)
[2017-08-01 03:50] VITALS: BP 101/50
[2017-08-01] MEDS: Hydromorphone 0.5mg/0.5ml inj IVP PRN ×3 (06:17→21:55)
[2017-08-01 08:04] VITALS: BP 96/59
[2017-08-01] MEDS: Phenytoin 100mg cap ORAL SCH ×2 (08:40→20:10)
[2017-08-01] MEDS: Heparin 5000 units/ml inj SUBQ SCH ×2 (08:41→20:11)
[2017-08-01 12:24] VITALS: BP 105/70
[2017-08-01] MEDS ORDERED: NS 550ML IV ONE (14:14)
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
--- NOTE | 2017-08-01 15:22 | Pulmonology Progress Note ---
Assessment/Plan Problems: (1) New onset seizure (2) No pertinent past medical history Assessment/Plan improving f/u Neuro recommendations EEG, Kepra valium Subjective ROS Limited/Unobtainable: No Constitutional: Reports: no symptoms HEENT: Repors: no symptoms Respiratory: Reports: no symptoms Allergies: Coded Allergies: MILK (Verified Allergy, Intermediate, 08/02/17) Objective Last 24 Hour Vital Signs Date Time Temp Pulse Resp B/P (MAP) Pulse Ox O2 Delivery O2 Flow Rate FiO2 08/01/17 12:24 98.8 89 18 105/70 97 Room Air 08/01/17 08:04 97.7 69 20 96/59 97 Room Air 08/01/17 03:50 98.2 68 20 101/50 100 Room Air 08/01/17 00:00 97.7 59 20 102/51 100 Room Air 07/31/17 20:00 98.1 68 18 110/63 100 Room Air 07/31/17 16:00 97.5 64 18 104/68 99 Room Air Objective better HEENT: normocephalic Respiratory/Chest: chest wall non-tender, lungs clear Breasts: no masses Cardiovascular: normal peripheral pulses, normal rate Abdomen: normal bowel sounds, no organomegaly Genitourinary: normal external genitalia Extremities: no clubbing Current Medications Medications (Trade) Dose Ordered Sig/Kain Route PRN Reason Start Time Stop Time Status Last Admin Dose Admin Acetaminophen (Tylenol) 650 mg Q4H PRN ORAL fever>100.5 07/31/17 19:30 08/27/17 15:29 Al Hydroxide/Mg Hydroxide (Mylanta II) 30 ml Q6H PRN ORAL dyspepsia 07/31/17 21:30 08/27/17 15:29 Clonazepam (KlonoPIN) 0.5 mg Q6H ORAL 07/31/17 20:00 08/07/17 13:59 08/01/17 15:11 Dextrose (Dextrose 50%) STAT PRN IV Hypoglycemia 08/01/17 15:30 08/27/17 15:29 Divalproex Sodium (Depakote) 750 mg EVERY 12 HOURS ORAL 08/02/17 09:00 09/01/17 08:59 Heparin Sodium (Porcine) (Heparin 5000 units/ml) 5,000 units EVERY 12 HOURS SUBQ 07/31/17 21:00 08/27/17 08:59 08/01/17 08:41 Hydromorphone HCl (Dilaudid) 0.5 mg Q4H PRN IVP Moderate Pain (Pain Scale 4-6) 07/31/17 18:30 08/05/17 10:29 08/01/17 12:28 Levetiracetam (Keppra) 1,500 mg Q12HR ORAL 07/31/17 21:00 08/30/17 13:59 08/01/17 08:40 Lorazepam (Ativan 2mg/ml 1ml) 2 mg Q1H PRN IV grand mal episode 07/31/17 18:30 08/05/17 11:29 Ondansetron HCl (Zofran) 4 mg Q6H PRN IVP Nausea & Vomiting 07/31/17 21:30 08/27/17 15:29 Phenytoin (Dilantin) 200 mg EVERY 12 HOURS ORAL 07/31/17 21:00 08/30/17 13:59 08/01/17 08:40 Polyethylene Glycol (Miralax) 17 gm HSPRN PRN ORAL Constipation 07/31/17 21:00 08/27/17 20:59 Tramadol HCl (Ultram) 50 mg Q6H PRN ORAL for headache 07/31/17 22:45 08/04/17 16:44 Valproate Sodium 1000 mg/Dextrose 65 ml @ 32.5 mls/hr ONCE ONCE IV 08/01/17 16:00 08/01/17 17:59 Zolpidem Tartrate (Ambien) 5 mg HSPRN PRN ORAL Insomnia 07/31/17 20:45 08/04/17 20:44 08/01/17 00:20 MAMIE HARO Aug 01, 2017 15:22
[2017-08-01 16:00] VITALS: BP 102/60
[2017-08-01] MEDS ORDERED: Valproate Sodium INJ 1,000 MG in D5W 55 ML IV ONE (16:00)
[2017-08-01 20:00] VITALS: BP 111/61
[2017-08-02] VITALS: BP 111/59
[2017-08-02] MEDS: clonazePAM 0.5mg tab ORAL SCH ×4 (01:37→20:11)
[2017-08-02] MEDS: traMADol 50mg tab ORAL PRN ×2 (02:37→21:48)
[2017-08-02 04:00] VITALS: BP_SYST 107; BP_SYST 93; BP_DIAS 54
[2017-08-02 08:00] VITALS: BP 115/63
[2017-08-02] MEDS: Phenytoin 100mg cap ORAL SCH ×2 (09:01→20:10)
[2017-08-02] MEDS: Heparin 5000 units/ml inj SUBQ SCH ×2 (09:03→20:12)
[2017-08-02] MEDS: Hydromorphone 0.5mg/0.5ml inj IVP PRN ×2 (09:22→13:58)
[2017-08-02 12:00] VITALS: BP 117/70
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
[2017-08-02 15:55] VITALS: BP 100/56
--- NOTE | 2017-08-02 16:14 | Pulmonology Progress Note ---
Assessment/Plan Problems: (1) New onset seizure (2) No pertinent past medical history Assessment/Plan f/u Neuro recommendations EEG, Kepra valium dc planning Subjective ROS Limited/Unobtainable: No Allergies: Coded Allergies: MILK (Verified Allergy, Intermediate, 08/02/17) Objective Last 24 Hour Vital Signs Date Time Temp Pulse Resp B/P (MAP) Pulse Ox O2 Delivery O2 Flow Rate FiO2 08/02/17 15:55 98.7 65 21 100/56 97 Room Air 08/02/17 12:00 98.0 78 20 117/70 97 Room Air 08/02/17 08:00 98.0 78 20 115/63 98 Room Air 08/02/17 04:00 97.2 96 18 107/54 96 Room Air 08/02/17 04:00 93/54 08/02/17 00:00 98.1 62 21 111/59 98 Room Air 08/01/17 20:00 98.1 76 20 111/61 98 Room Air Objective better General Appearance: WD/WN, no acute distress HEENT: normocephalic, anicteric Respiratory/Chest: chest wall non-tender, lungs clear Cardiovascular: normal rate Abdomen: normal bowel sounds, no organomegaly Extremities: no cyanosis Microbiology Date/Time Source Procedure Growth Status 07/31/17 14:40 Cerebral Spinal Fluid Gram Stain - Final Resulted 07/31/17 14:40 Cerebral Spinal Fluid CSF Culture - Preliminary NO GROWTH AFTER 24 HOURS Resulted Current Medications Medications (Trade) Dose Ordered Sig/Kain Route PRN Reason Start Time Stop Time Status Last Admin Dose Admin Acetaminophen (Tylenol) 650 mg Q4H PRN ORAL fever>100.5 07/31/17 19:30 08/27/17 15:29 Al Hydroxide/Mg Hydroxide (Mylanta II) 30 ml Q6H PRN ORAL dyspepsia 07/31/17 21:30 08/27/17 15:29 Clonazepam (KlonoPIN) 0.5 mg Q6H ORAL 07/31/17 20:00 08/07/17 13:59 08/02/17 14:23 Dextrose (Dextrose 50%) STAT PRN IV Hypoglycemia 08/01/17 15:30 08/27/17 15:29 Divalproex Sodium (Depakote) 750 mg EVERY 12 HOURS ORAL 08/02/17 09:00 09/01/17 08:59 08/02/17 09:01 Heparin Sodium (Porcine) (Heparin 5000 units/ml) 5,000 units EVERY 12 HOURS SUBQ 07/31/17 21:00 08/27/17 08:59 08/02/17 09:03 Hydromorphone HCl (Dilaudid) 0.5 mg Q4H PRN IVP Moderate Pain (Pain Scale 4-6) 07/31/17 18:30 08/05/17 10:29 08/02/17 13:58 Levetiracetam (Keppra) 1,500 mg Q12HR ORAL 07/31/17 21:00 08/30/17 13:59 08/02/17 09:00 Lorazepam (Ativan 2mg/ml 1ml) 2 mg Q1H PRN IV grand mal episode 07/31/17 18:30 08/05/17 11:29 Ondansetron HCl (Zofran) 4 mg Q6H PRN IVP Nausea & Vomiting 07/31/17 21:30 08/27/17 15:29 Phenytoin (Dilantin) 200 mg EVERY 12 HOURS ORAL 07/31/17 21:00 08/30/17 13:59 08/02/17 09:01 Polyethylene Glycol (Miralax) 17 gm HSPRN PRN ORAL Constipation 07/31/17 21:00 08/27/17 20:59 08/01/17 16:38 Tramadol HCl (Ultram) 50 mg Q6H PRN ORAL for headache 07/31/17 22:45 08/04/17 16:44 08/02/17 02:37 Zolpidem Tartrate (Ambien) 5 mg HSPRN PRN ORAL Insomnia 07/31/17 20:45 08/04/17 20:44 08/01/17 00:20 MAMIE HARO Aug 02, 2017 16:14
[2017-08-03] VITALS: BP 112/74
[2017-08-03] MEDS: clonazePAM 0.5mg tab ORAL SCH ×5 (01:55→14:18)
[2017-08-03 04:00] VITALS: BP 102/61
[2017-08-03 08:00] VITALS: BP 94/54
[2017-08-03] MEDS: Phenytoin 100mg cap ORAL SCH (09:10)
[2017-08-03] MEDS: Heparin 5000 units/ml inj SUBQ SCH (09:13)
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
[2017-08-03] MEDS ORDERED: D5NS 1000ml IV ONE (15:49)
--- NOTE | 2017-08-03 16:02 | Pulmonology Progress Note ---
Assessment/Plan Problems: (1) New onset seizure (2) No pertinent past medical history Assessment/Plan f/u Neuro recommendations EEG, Kepra valium dc planning prescription Subjective ROS Limited/Unobtainable: No Constitutional: Reports: no symptoms Respiratory: Reports: no symptoms Allergies: Coded Allergies: MILK (Verified Allergy, Intermediate, 08/02/17) Objective Last 24 Hour Vital Signs Date Time Temp Pulse Resp B/P (MAP) Pulse Ox O2 Delivery O2 Flow Rate FiO2 08/03/17 08:00 97.5 20 94/54 100 Room Air 08/03/17 07:47 98 Nasal Cannula 2.0 28 08/03/17 07:45 Nasal Cannula 2.0 28 08/03/17 04:00 99.5 64 20 102/61 100 Room Air 08/03/17 00:00 97.5 72 18 112/74 98 Room Air 08/02/17 21:29 Nasal Cannula 2.0 28 08/02/17 21:29 98 Nasal Cannula 2.0 28 Objective better General Appearance: WD/WN HEENT: normocephalic Respiratory/Chest: chest wall non-tender, normal breath sounds Cardiovascular: normal rate Abdomen: no organomegaly Extremities: no clubbing Skin: no rash Current Medications Medications (Trade) Dose Ordered Sig/Kain Route PRN Reason Start Time Stop Time Status Last Admin Dose Admin Acetaminophen (Tylenol) 650 mg Q4H PRN ORAL fever>100.5 07/31/17 19:30 08/27/17 15:29 08/03/17 09:25 Al Hydroxide/Mg Hydroxide (Mylanta II) 30 ml Q6H PRN ORAL dyspepsia 07/31/17 21:30 08/27/17 15:29 Clonazepam (KlonoPIN) 0.5 mg Q6H ORAL 07/31/17 20:00 08/07/17 13:59 08/03/17 01:55 Dextrose (Dextrose 50%) STAT PRN IV Hypoglycemia 08/01/17 15:30 08/27/17 15:29 Divalproex Sodium (Depakote) 750 mg EVERY 12 HOURS ORAL 08/02/17 09:00 09/01/17 08:59 08/03/17 09:11 Heparin Sodium (Porcine) (Heparin 5000 units/ml) 5,000 units EVERY 12 HOURS SUBQ 07/31/17 21:00 08/27/17 08:59 08/03/17 09:13 Hydromorphone HCl (Dilaudid) 0.5 mg Q4H PRN IVP Moderate Pain (Pain Scale 4-6) 07/31/17 18:30 08/05/17 10:29 08/02/17 13:58 Levetiracetam (Keppra) 1,500 mg Q12HR ORAL 07/31/17 21:00 08/30/17 13:59 08/03/17 09:10 Lorazepam (Ativan 2mg/ml 1ml) 2 mg Q1H PRN IV grand mal episode 07/31/17 18:30 08/05/17 11:29 Ondansetron HCl (Zofran) 4 mg Q6H PRN IVP Nausea & Vomiting 07/31/17 21:30 08/27/17 15:29 Phenytoin (Dilantin) 200 mg EVERY 12 HOURS ORAL 07/31/17 21:00 08/30/17 13:59 08/03/17 09:10 Polyethylene Glycol (Miralax) 17 gm HSPRN PRN ORAL Constipation 07/31/17 21:00 08/27/17 20:59 08/01/17 16:38 Tramadol HCl (Ultram) 50 mg Q6H PRN ORAL for headache 07/31/17 22:45 08/04/17 16:44 08/02/17 21:48 Zolpidem Tartrate (Ambien) 5 mg HSPRN PRN ORAL Insomnia 07/31/17 20:45 08/04/17 20:44 08/01/17 00:20 MAMIE HARO Aug 03, 2017 16:02
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
[2017-08-04] MEDS ORDERED: DEPAKOTE125 MG PO (09:25)
--- NOTE | 2017-08-04 09:27 | Discharge Summary ---
Discharge Summary Hospital Course Date of Admission Jul 28, 2017 at 00:15 Date of Discharge Aug 03, 2017 at 15:50 Admitting Diagnosis newonset partial seizure HPI Laura Fritz is a 27 year old female who was admitted on Jul 28, 2017 at 00: 15 for Newonset Partial Seizure Hospital Course dc summary #[id number] Discharge Medications New Medications: Divalproex Sodium (Depakote) 125 Mg Tablet.dr 750 MG PO Q12HR, #60 TAB Levetiracetam (Keppra) 1,000 Mg Tablet 1500 MG ORAL EVERY 12 HOURS for 30 Days, #30 TAB 0 Refills Diazepam* (Diazepam*) 5 Mg Tablet 5 MG ORAL Q6H for 30 Days, TAB Discharge Condition Upon Discharge: stable Discharge Disposition Patient was discharged to Home (01) Discharge Diagnoses: Discharge Instructions Discharge Instructions Special Instructions I have been assigned to complete a D/C Summary on this account. I was not involved in the patient management Isatu Anderson NP (Vanchtein) Aug 04, 2017 09:27
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
--- NOTE | 2017-08-23 18:03 | Cardiology Report ---
APPROVED REPORT EKG Measurement Heart [id number] Atrial flutter with variable AV block Abnormal ECG
== END 2017-08-03 15:50 | disposition home or self-care (01) | DRG 53 ==
LOC: EMR 23:00 → 2E 07-28 00:15 → EDBEDREQ 07-28 01:05 → 2E 07-28 05:11 → 4E 07-28 14:30 → 2W 07-29 13:19 → 4E 07-31 18:30
PROC: 009U3ZX Drainage of Spinal Canal, Percutaneous Approach, Diagnostic (ICD-10-PCS; principal; 2017-07-31)
DX: G40.101 Localization-related (focal) (partial) symptomatic epilepsy and epileptic syndromes with simple partial seizures, not intractable, with status epilepticus (principal); G93.89 Other specified disorders of brain; Z87.820 Personal history of traumatic brain injury; F32.9 Major depressive disorder, single episode, unspecified; R51 Headache; W34.00XS Accidental discharge from unspecified firearms or gun, sequela
CPT/HCPCS: 36415; 70450; 70553; 71010; 74000; 80053; 80185; 80299; 80300; 80329; 81003; 81025; 82550; 82553; 82945; 84157; 84484; 85025; 85610; 85651; 86039; 86140; 86703; 87070; 87086; 87181; 87205; 89051; 93005; 94760; 95819; 99285; A9585; J1165; J2405